=== PATIENT | male | born 1950 | race Caucasian/White ===

== ENCOUNTER → 2018-05-03 14:11 | Outpatient (CLI) | payer OTHER, MEDICARE, SELFPAY ==
--- NOTE | 2018-05-03 | DI.RAD.S_ITS ---
PROCEDURE: XR LUMBAR SPINE 2-3V INDICATIONS: LOW BACK PAIN TECHNIQUE: 3 views of the lumbar spine were acquired. COMPARISON: [facility], , L-SPINE WITHOUT CONTRAST, 07/26/2012, 17:37. FINDINGS: Bones: 5 [id number] vertebrae are present. Mild levoconvex scoliotic curvature is noted. No focal AP alignment abnormality is seen. No vertebral body compression fractures. No suspicious bony lesions. Mild disc space narrowing is seen at the L2-L3, L4, and L5-S1 level. The disc heights are otherwise relatively well-preserved. Lower lumbar spine facet arthropathy is seen. Soft tissues: Overlying bowel gas pattern is normal. No suspicious soft tissue calcifications. IMPRESSION: Age-appropriate lumbar spine degenerative changes are seen. Dictated by: Salazar Whitlock M.D. on 05/03/2018 at 15:31 Approved by: Salazar Whitlock M.D. on 05/03/2018 at 15:33
== END ==
PROVIDERS: Family Provider Family Medicine; PCP Family Medicine; Visit Provider Family Medicine
DX: M54.5 Low back pain (principal)
CPT/HCPCS: 72100

== ENCOUNTER → 2018-09-10 14:50 | Outpatient (CLI) | payer OTHER, SELFPAY ==
--- NOTE | 2018-09-10 | DI.RAD.S_ITS ---
PROCEDURE: XR HIP W PEL IF DONE RT 2V INDICATIONS: Right Hip Pain TECHNIQUE: Tube views of the hip were acquired. COMPARISON: None. FINDINGS: Bones: No fractures or dislocations. No suspicious bony lesions. The visualized pelvic ring appears intact. No evidence of avascular necrosis. Soft tissues: No suspicious soft tissue calcifications or masses. IMPRESSION: No acute right hip fracture or dislocation. No evidence of avascular necrosis. Dictated by: Leonidas Gutierres M.D. on 09/10/2018 at 15:23 Approved by: Leonidas Gutierres M.D. on 09/10/2018 at 15:24
== END ==
PROVIDERS: PCP Family Medicine; Visit Provider Family Medicine
DX: M25.551 Pain in right hip (principal)
CPT/HCPCS: 73502

== ENCOUNTER → 2018-11-22 15:40 | Outpatient (CLI) | payer OTHER, SELFPAY ==
--- NOTE | 2018-11-22 | DI.RAD.S_ITS ---
PROCEDURE: XR HAND RT MIN 3V INDICATIONS: RIGHT HAND SWELLING TECHNIQUE: 3 views of the hand(s) acquired. COMPARISON: None. FINDINGS: Bones: No fractures or dislocations. Carpal bones are normally aligned. No suspicious bony lesions. Soft tissues: No suspicious soft tissue calcifications. Soft tissue edema is noted overlying the metacarpals and carpal bones. There are scattered mild IP degenerative narrowing. IMPRESSION: Mild degenerative arthritic changes. Dictated by: Jillian Mahan M.D. on 11/22/2018 at 16:58 Approved by: Jillian Mahan M.D. on 11/22/2018 at 16:59
== END ==
PROVIDERS: PCP Family Medicine; Visit Provider Family Medicine
DX: M79.641 Pain in right hand (principal); M19.041 Primary osteoarthritis, right hand; M25.441 Effusion, right hand
CPT/HCPCS: 73130

== ENCOUNTER → 2019-09-09 18:32 | Outpatient (CLI) | payer OTHER, SELFPAY ==
--- NOTE | 2019-09-09 | DI.MRI.S_ITS ---
PROCEDURE: MR LUMBAR SPINE WO CON INDICATIONS: radiculopathy, lumbar region TECHNIQUE: Noncontrast sagittal T1 spin echo and T2 fast echo, sagittal STIR, axial T1 and T2 fast spin echo through the lumbar spine. In cases with scoliosis, additional coronal T2 fast spin echo may be performed. COMPARISON: [facility], CR, XR LUMBAR SPINE 2-3V, 05/03/2018, 13:56. [facility], CT, ABDOMEN WITHOUT CONTRAST, 03/08/2011, 13:28. [facility], MR, L-SPINE WITHOUT CONTRAST, 07/26/2012, 17:37. FINDINGS: Image quality: Excellent. Alignment and Curvature: Mild levoconvex scoliotic curvature is noted. Bone Marrow: Marrow is of normal overall signal. No acute vertebral body compression fractures. Spinal Cord: Conus medullaris terminates at the L1 level. Visualized cord demonstrates normal signal and size. Paraspinous Soft Tissues: No paravertebral masses. T12-L1: Normal appearance. L1-L2: The disc height and disk signal are well-preserved. Mild generalized disc bulge is seen. There is minimal left-sided and no right-sided neural foraminal narrowing seen. No significant central canal narrowing is seen. Minimally progressed compared to 2012. L2-L3: Moderate loss of disc height is seen. Loss of disc signal is seen. Moderate generalized disc bulge is seen. There is moderate right-sided and mild to moderate left-sided facet hypertrophy seen. There is moderate to severe right-sided and at least moderate left-sided neural foraminal narrowing seen. There is a degree of compression seen upon the exiting nerve roots. Moderate central canal narrowing is seen. These imaging findings have progressed compared to the prior study. L3-L4: Mild loss of disc height is seen. Loss of disc signal is seen. Moderate to prominent disc bulge is seen. At least moderate bilateral neural foraminal narrowing is seen. Moderate central canal narrowing is seen. These imaging findings have progressed compared to the prior study. L4-L5: Mild loss of disc height is seen. Loss of disc signal is seen. Moderate disc bulge is seen, which is eccentric to the right. Moderate facet joint hypertrophy is seen. Moderate bilateral neural foraminal narrowing is seen, left worse than right. These degenerative changes are worse than in 2012. L5-S1: Mild loss of disc height is seen. Loss of disc signal is seen. Mild to moderate disc bulge is seen. Mild facet joint hypertrophy is seen. There is minimal right-sided and moderate left-sided neural foraminal narrowing seen. No significant central canal narrowing is seen. When comparison is made with the prior examination, these findings are similar. IMPRESSION: Multiple levels of lumbar spine degenerative change are seen, which have progressed compared to 2012. Dictated by: Salazar Whitlock M.D. on 09/10/2019 at 9:04 Approved by: Salazar Whitlock M.D. on 09/10/2019 at 9:10
== END ==
PROVIDERS: PCP Family Medicine; Visit Provider Family Medicine
DX: M47.26 Other spondylosis with radiculopathy, lumbar region (principal); M47.27 Other spondylosis with radiculopathy, lumbosacral region
CPT/HCPCS: 72148

== ENCOUNTER → 2019-12-01 15:40 | Outpatient (CLI) | payer OTHER, SELFPAY ==
--- NOTE | 2019-12-01 | DI.MRI.S_ITS ---
PROCEDURE: MR LUMBAR SPINE WO CON INDICATIONS: BACK PAIN TECHNIQUE: Noncontrast sagittal T1 spin echo and T2 fast echo, sagittal STIR, axial T1 and T2 fast spin echo through the lumbar spine. In cases with scoliosis, additional coronal T2 fast spin echo may be performed. COMPARISON: [facility], MR, MR LUMBAR SPINE WO CON, 09/09/2019, 18:44. FINDINGS: Image quality: Excellent. Alignment and Curvature: Straightening of the normal lordotic curvature. Bone Marrow: No fracture . Multilevel degenerative endplate sclerosis and spurring. Diffuse facet arthropathy. Spinal Cord: Conus medullaris terminates at the L1-L2 level. Visualized cord demonstrates normal signal and size. Paraspinous Soft Tissues: No paravertebral masses. L1-L2: Normal appearance. L2-L3: Mild central canal narrowing. Partial effacement of both lateral recesses with bilaterally symmetric appearance. Mild bilateral foraminal stenoses. L3-L4: Mild central canal narrowing. Lateral recesses appear patent. Minimal left foraminal narrowing. No definite right foraminal stenosis L4-L5: Mild central canal narrowing. Partial effacement of both lateral recesses with bilaterally symmetric appearance. Mild right foraminal narrowing. No left foraminal stenosis L5-S1: No definite central canal narrowing. Moderate left foraminal stenosis. No definite right foraminal narrowing IMPRESSION: Diffuse lumbar spondylosis and facet arthropathy. No high-grade central canal narrowing Bilateral numerous foraminal stenoses as detailed above by spinal level Straightening of the normal lordotic curvature. Dictated by: Hair Flores M.D. on 12/01/2019 at 17:12 Approved by: Hair Flores M.D. on 12/01/2019 at 17:18
--- NOTE | 2019-12-01 15:44 | DI.MRI.S_ITS ---
PROCEDURE: MR THORACIC SPINE WO CON INDICATIONS: NECK AND BACK PAIN TECHNIQUE: Noncontrast sagittal T1 spine echo and T2 fast spin echo, sagittal STIR, axial T1 and T2 fast spin echo through the thoracic spine. COMPARISON: None. FINDINGS: Image quality: Excellent. Alignment and Curvature: There is normal bony alignment. Bone Marrow: Multilevel degenerative endplate sclerosis and spurring. Diffuse facet arthropathy. No acute vertebral body compression fractures. Spinal Cord: Visualized spinal cord is normal in size and signal. Paraspinous Soft Tissues: No paravertebral masses. Bilateral parapelvic cysts incidentally noted Miscellaneous: On axial images, central canal and foramina appear widely patent at all scanned levels. IMPRESSION: No fracture identified. Mild diffuse discogenic changes No canal or foraminal stenoses Dictated by: Hair Flores M.D. on 12/01/2019 at 17:09 Approved by: Hair Flores M.D. on 12/01/2019 at 17:11
--- NOTE | 2019-12-01 15:44 | DI.MRI.S_ITS ---
PROCEDURE: MR CERVICAL SPINE WO CON INDICATIONS: NECK AND BACK PAIN TECHNIQUE: Noncontrast sagittal T1 spin echo and T2 fast spin echo, sagittal STIR, foraminal oblique sagittal T2 fast spin echo, and axial gradient echo or T2 fast spin echo through the cervical spine. COMPARISON: None. FINDINGS: Image quality: Excellent. Alignment and Curvature: Straightening of the normal lordotic curvature. Trace anterolisthesis of C4 on C5 Bone Marrow: No fracture. Multilevel degenerative endplate sclerosis and spurring. Diffuse facet arthropathy. Spinal Cord: Visualized spinal cord has normal size and signal. No cerebellar tonsillar herniation. Paraspinous Soft Tissues: No paravertebral masses. Prevertebral soft tissues are normal in thickness. C2-C3: No central canal narrowing. Mild bilateral foraminal stenosis C3-C4: Mild central canal narrowing. Severe bilateral foraminal stenosis with nerve root compression C4-C5: Mild central canal narrowing. Moderate left foraminal stenosis with nerve root compression. Mild right foraminal narrowing C5-C6: Mild central canal narrowing. Severe right foraminal stenosis with nerve root compression. Moderate left foraminal stenosis with nerve root compression. C6-C7: Mild central canal narrowing. Moderate foraminal stenosis with nerve root compression. Severe left foraminal stenosis with nerve root compression C7-T1: Normal appearance. IMPRESSION: Diffuse cervical spondylosis and facet arthropathy Numerous severe bilateral foraminal stenosis as detailed above by spinal level Trace anterolisthesis of C4 on C5 Straightening of the normal lordotic curvature. Dictated by: Hair Flores M.D. on 12/01/2019 at 16:57 Approved by: Hair Flores M.D. on 12/01/2019 at 17:01
== END ==
PROVIDERS: PCP Family Medicine; Visit Provider Neurological Surgery
DX: M54.2 Cervicalgia (principal); M54.9 Dorsalgia, unspecified; M47.816 Spondylosis without myelopathy or radiculopathy, lumbar region; M47.814 Spondylosis without myelopathy or radiculopathy, thoracic region; M47.812 Spondylosis without myelopathy or radiculopathy, cervical region; M48.061 Spinal stenosis, lumbar region without neurogenic claudication; M48.07 Spinal stenosis, lumbosacral region; M48.02 Spinal stenosis, cervical region
CPT/HCPCS: 72141; 72146; 72148

== ENCOUNTER → 2020-04-13 09:25 | Outpatient (CLI) | payer OTHER, SELFPAY ==
--- NOTE | 2020-04-13 | DI.RAD.S_ITS ---
PROCEDURE: XR KNEE RT 3V INDICATIONS: RIGHT KNEE PAIN TECHNIQUE: 3 views of the knee were acquired. COMPARISON: None. FINDINGS: Bones: No fractures or dislocations. No suspicious bony lesions. Age-appropriate bony degenerative changes are seen. Soft tissues: There is a mild joint effusion. No suspicious soft tissue calcifications. IMPRESSION: Mild joint effusion. Mild degenerative changes. If there is strong clinical suspicion for internal derangement of the knee, please consider a dedicated MRI for further evaluation (assuming that there is no contraindication to MRI). Dictated by: Salazar Whitlock M.D. on 04/13/2020 at 9:02 Approved by: Salazar Whitlock M.D. on 04/13/2020 at 9:04
== END ==
PROVIDERS: PCP Family Medicine; Referring Provider Family Medicine; Visit Provider Family Medicine
DX: M25.561 Pain in right knee (principal); M25.461 Effusion, right knee
CPT/HCPCS: 73562

== ENCOUNTER → 2022-03-01 09:48 | Outpatient (CLI) | payer MEDICARE, OTHER, SELFPAY ==
--- NOTE | 2022-03-01 | DI.RAD.S_ITS ---
PROCEDURE: XR ELBOW LT MIN 3V INDICATIONS: Other chest pain TECHNIQUE: 3 views of the elbow were acquired. COMPARISON: None. FINDINGS: Bones: No fractures or dislocations. No suspicious bony lesions. Mild osteoarthritic degenerative changes noted in the left elbow. Soft tissues: No elbow joint effusion. No suspicious soft tissue calcifications. IMPRESSION: No fracture. No acute osseous lesion. If symptoms and/or clinical suspicion for pathology persists, further assessment with repeat radiographs (7-10 days) or advanced imaging (e.g. CT, MRI or bone scan) should be considered. Dictated by: Cristina Escalante MD, PhD on 03/01/2022 at 13:23 Approved by: Cristina Escalante MD, PhD on 03/01/2022 at 13:24
--- NOTE | 2022-03-01 | DI.RAD.S_ITS ---
PROCEDURE: XR CHEST 2V INDICATIONS: Other chest pain TECHNIQUE: 2 views of the chest were acquired. COMPARISON: , , CHEST 1 VIEW, 02/18/2018, 9:18. FINDINGS: Surgical changes and devices: None. Lungs and pleura: Lungs are clear. No pleural effusions or pneumothorax. Mediastinum: Mediastinal contours are normal. Heart size is normal. Bones and chest wall: No suspicious bony abnormalities. Soft tissues appear unremarkable. IMPRESSION: No acute cardiopulmonary pathology. Dictated by: Leonidas Gutierres M.D. on 03/01/2022 at 11:56 Approved by: Leonidas Gutierres M.D. on 03/01/2022 at 11:56
--- NOTE | 2022-03-01 | DI.RAD.S_ITS ---
PROCEDURE: XR SHOULDER LT MIN 2V INDICATIONS: Other chest pain TECHNIQUE: Three views of the shoulder were acquired. COMPARISON: [facility], , SHOULDER MINIMUM 2 VIEW LEFT, 07/12/2015, 15:58. FINDINGS: Bones: No fractures or dislocations. No suspicious bony lesions. Visualized ribs appear intact. Soft tissues: There are new calcifications adjacent to the greater tuberosity and along the undersurface of the acromion. IMPRESSION: 1. Development of dystrophic calcifications suspicious for calcific tendinitis and/or calcific bursitis. Dictated by: Rebeka Varma M.D. on 03/01/2022 at 14:27 Approved by: Rebeka Varma M.D. on 03/01/2022 at 14:28
== END ==
PROVIDERS: PCP Family Medicine; Referring Provider Family Medicine; Visit Provider Family Medicine
DX: M25.522 Pain in left elbow; R07.89 Other chest pain; M25.512 Pain in left shoulder; M25.812 Other specified joint disorders, left shoulder
CPT/HCPCS: 71046; 73030; 73070; 73080

== ENCOUNTER → 2022-03-08 10:30 | Outpatient (CLI) | payer MEDICARE, OTHER, SELFPAY ==
[2022-03-08 14:16] LABS: COVID19 -Nasal RAPID Negative (Negative)
== END ==
PROVIDERS: PCP Family Medicine; Visit Provider Family Medicine Sleep Medicine
DX: Z20.822 Contact with and (suspected) exposure to COVID-19 (principal)
CPT/HCPCS: 87635; C9803

== ENCOUNTER → 2022-03-10 11:41 | Day surgery (SDC) | payer MEDICARE, OTHER, SELFPAY ==
[2022-03-10] VITALS (18 sets, daily range): BP systolic 104–125; BP diastolic 55–83; PULSE 40–80; RESP 12–19; TEMP 36.2; O2SAT 92–100
--- NOTE | 2022-03-10 | DI.RAD.S_ITS ---
PROCEDURE: XR CHEST 1V INDICATIONS: possible aspiration TECHNIQUE: One view of the chest was acquired. COMPARISON: [facility], CR, XR CHEST 2V, 03/01/2022, 9:49. FINDINGS: Surgical changes and devices: None. Lungs and pleura: Lungs are clear. No pleural effusions or pneumothorax. Mediastinum: Mediastinal contours appear normal. Heart size is normal. Bones and chest wall: No suspicious bony lesions. Overlying soft tissues appear unremarkable. IMPRESSION: No acute pulmonary process. Dictated by: Jillian Mahan M.D. on 03/10/2022 at 18:18 Approved by: Jillian Mahan M.D. on 03/10/2022 at 18:20
--- NOTE | 2022-03-10 13:32 | P.EN_ITS ---
Event Note Date Patient Seen: 03/10/22 Time Patient Seen: 13:33 Event Note (Rapid Response, Code, or fall): Was called to pre-op bedside after rapid response called secondary to bradycardia into the 30s. Patient went into a junctional rhythm and fainted. EKG showed normal sinus rhythm with an interventricular conduction delay. As he was fainting, he also vomited and did have a small amount of aspiration. Chest x-ray taken and pending. Patient spontaneously revived after fluid resu scitation. Reports that he is now feeling fine with no nausea or headache. Denies pain. Reports that he does have a history of vasovagal syncope that has had a full cardiac workup in the past, reportedly non revealing. Shared decision was made to postpone procedure until patient has had cardiac clearance. Saira called and updated. Both patient and demonstrated understanding and agreement. Plan will be to follow-up with PCP, Dr. Singh in 1 week. Patient given routine discharge instructions and advised to rehydrate and eat. He will call back with any worsening symptoms including chest pain, shortness a breath, syncope, or any other concerns.
--- NOTE | 2022-03-10 15:03 | SUR.PREOP ---
as iv was being inserted. pt. c/o lightheadedness and nausea. pt. diaphoretic, hob immediately flat and Pt. placed on monitor. pt. became unresponsive vomited bilious emesis. Pt turned to side. code blue called. Pt returned to consciousness at this time without intervention. Iv restarted and fluids open wide. at bedside. Dr Douglas updated by Rajan on by telephone. 12 lead EGK, labs and Chest xray completed.
== END | disposition home or self-care (01) ==
PROVIDERS: PCP Family Medicine; Referring Provider Student in an Organized Health Care Education/Training Program; Visit Provider Student in an Organized Health Care Education/Training Program
PROC: 0DJD8ZZ Inspection of Lower Intestinal Tract, Via Natural or Artificial Opening Endoscopic (ICD-10-PCS; CPT 45378; principal; 2022-03-10 13:00)
DX: Z12.11 Encounter for screening for malignant neoplasm of colon (principal); R00.1 Bradycardia, unspecified; R55 Syncope and collapse; R11.10 Vomiting, unspecified; Z53.09 Procedure and treatment not carried out because of other contraindication
CPT/HCPCS: G0121; 71045; 93005

== ENCOUNTER → 2022-04-28 10:25 | Outpatient (CLI) | payer MEDICARE, OTHER, SELFPAY ==
--- NOTE | 2022-04-28 | DI.ECHO.S_ITS ---
[facility] +---------+ : : [address] : [address] [place] : : : : [id number] : : : : Phone: [phone]+ Echocardiogram Report + + :Name: HALEY SHAW Study Date: 04/28/2022 Height: 72 in : :[facility] ReadingLocation: Weight: 225 lb : : Gender: Male BSA: 2.2 m2 : :: 1950 Age: 71 yrs BP: 140/86 mmHg: :Reason For Study: Bradycardia : :Ordering Physician: KRYSTEN, : :MORIAH Performed By: Kevin Ascencio : :Referring: MORIAH CORONADO : + + Interpretation Summary 1) Normal left ventricular thickness and size with low normal systolic function (EF 50-55%). 2) Normal right ventricular size and function. 3) No significant valvular abnormalities. 4) No prior Echo available for comparison. Procedure: A two-dimensional transthoracic echocardiogram with color flow and Doppler was performed. The study quality was technically adequate. There is no prior echocardiogram noted for this patient. The patient was in sinus bradycardia with heart rates between 47-57 bpm during the exam. Left Ventricle: The left ventricle is normal in size and wall thickness. Left ventricular systolic function is low normal. The ejection fraction is estimated to be 50-55%. There are no focal wall motion abnormalities. Diastolic parameters suggest probable normal left ventricular diastolic function and normal filling pressures. Right Ventricle: The right ventricle is normal in size and function. Atria: Both atria are normal in size. The interatrial septum grossly appears intact with no obvious evidence for an atrial septal defect. Mitral Valve: The mitral valve is normal in structure and function. There is trace mitral regurgitation. Aortic Valve: The aortic valve is normal in structure and function. There is no aortic valve stenosis. There is trace aortic regurgitation. Tricuspid Valve: The tricuspid valve is normal in structure and function. There is mild tricuspid regurgitation. The right ventricular systolic pressure is estimated to be at least 23 mmHg based on an estimated right atrial pressure of 3 mm Hg. Pulmonic Valve: The pulmonic valve is normal in structure and function. There is a trace or physiologic amount of pulmonic regurgitation. Great Vessels: The aortic root is normal size. The dimensions of the ascending aorta are normal. The IVC is of normal diameter and collapses greater than 50% with a sniff. This suggests a low right atrial pressure of 3 mm Hg. Pericardium/ Pleura There is no pericardial effusion. There is no pleural effusion. MMode/2D Measurements & Calculations LVIDd: 5.6 cm LVOT diam: 2.4 cm LVIDs: 4.1 cm Ao root diam: 3.5 cm FS: 27.6 % asc Aorta Diam: 3.5 cm IVSd: 0.88 cm LVPWd: 0.92 cm LV kaye. diameter/BSA (cm/m^2): 2.5 LV sys. diameter/BSA (cm/m^2): 1.8 LA A2 area: 20.2 cm2 RA long axis: 5.2 cm LA A4 area: 20.2 cm2 RA area: 17.1 cm2 LA length (vol): 6.1 cm RA vol: 47.8 ml LA vol: 56.9 ml RA : 21.3 ml/m2 LA vol index: 25.4 ml/m2 TAPSE: 2.8 cm Doppler Measurements & Calculations Ao V2 max: 108.7 cm/sec LVOT Max Landen: 90.2 cm/sec Ao V2 mean: 72.7 cm/sec LV V1 max P.3 mmHg Ao max P.7 mmHg LV V1 VTI: 19.7 cm Ao mean P.4 mmHg DARLIN(I,D): 4.4 cm2 Ao V2 VTI: 21.2 cm DARLIN(V,D): 3.9 cm2 sev ratio: 0.93 DARLIN indexed to BSA (cm^2/m^2): 1.9 MV E max landen: 64.9 cm/sec TR max landen: 222.7 cm/sec MV A max landen: 60.1 cm/sec TR max P.8 mmHg MV E/A: 1.1 Med Peak E' Landen: 7.2 cm/sec E/E' med: 9.0 Lat Peak E' Landen: 9.9 cm/sec E/E' lat: 6.5 E/e' average: 7.8 MV dec time: 0.22 sec SV(LVOT): 92.4 ml Reading Physician:12:31 PM
== END ==
PROVIDERS: PCP Family Medicine; Referring Provider Internal Medicine Cardiovascular Disease; Visit Provider Internal Medicine Cardiovascular Disease
DX: I07.1 Rheumatic tricuspid insufficiency (principal); R00.1 Bradycardia, unspecified
CPT/HCPCS: 93306

== ENCOUNTER → 2022-07-11 13:54 | Outpatient (CLI) | payer MEDICARE, OTHER, SELFPAY ==
[2022-07-11 14:31] LABS: COVID19 -Nasal RAPID Negative (Negative)
--- NOTE | 2022-07-11 19:06 | DI.NM.S_ITS ---
DATE OF SERVICE: PROCEDURE PERFORMED: Exercise stress test. INDICATION: Syncope. CARDIAC STRESS: The patient underwent exercise stress test under the supervision of an attending staff. He walked on Henri protocol for 7 minutes and 40 seconds, achieved 91 percent of target heart rate. Resting blood pressure 118/78 mmHg. Peak blood pressure 162/84 mmHg. QUANG -7 percent. Baseline rhythm was sinus. During peak exercise, patient has 1-1.5 mm horizontal/downsloping ST-depression in inferior leads and in lead V5 to V6, which got improved to baseline within 1 minute in recovery. Occasional PVCs in recovery. No chest discomfort. Had some shortness of breath. CONCLUSION: Exercise stress is positive for inducible ischemia. Fair exercise tolerance. Normal hemodynamic response. No significant arrhythmias. No chest pain. Had some shortness of breath. Correlate clinically. Ashlyn Avelar - PARTS CLASSIFIER/kristian/lc doc#: [id number]/job#: [id number] dd: 07/11/2022 17:10:00 dt: 07/11/2022 18:45:00 DICTATING /COPIES TO: Dar Roper MD COPIES MNE: CORINNE;
== END ==
PROVIDERS: PCP Family Medicine; Referring Provider Internal Medicine Cardiovascular Disease; Visit Provider Internal Medicine Cardiovascular Disease
DX: R07.9 Chest pain, unspecified (principal); R55 Syncope and collapse
CPT/HCPCS: 87635; 93017

== ENCOUNTER → 2022-10-18 16:17 | Outpatient (CLI) | payer MEDICARE, OTHER, SELFPAY ==
--- NOTE | 2022-10-18 | DI.MRI.S_ITS ---
PROCEDURE: MR LUMBAR SPINE WO CON INDICATIONS: PARESTHESIA OF SKIN TECHNIQUE: Noncontrast sagittal T1 spin echo and T2 fast echo, sagittal STIR, and T2 fast spin echo through the lumbar spine. In cases with scoliosis, additional coronal T2 fast spin echo may be performed. COMPARISON: None. FINDINGS: Image quality: Excellent. Alignment and Curvature: There is minimal S shaped scoliotic curvature. There is minimal retrolisthesis seen at L3-L4, L4-L5, and at L5-S1. Bone Marrow: Marrow is of normal overall signal. No acute vertebral body compression fractures. Spinal Cord: Conus medullaris terminates at the L1 level. Visualized cord demonstrates normal signal and size. Paraspinous Soft Tissues: No paravertebral masses. T12-L1: Normal appearance. L1-L2: The disc height and disk signal are relatively well-preserved. Mild to moderate disc bulge is seen. Mild facet joint hypertrophy is seen. There is hejp-ke-tcbxfwzb left-sided and mild right-sided neural foraminal narrowing. Mild central canal narrowing is seen. L2-L3: Mild loss of disc height is seen. Loss of disc signal is seen. At least moderate disc bulge is seen. There is a superimposed central disc protrusion. There is a focal annular fissure seen posteriorly. There is moderate right-sided and uyrf-vw-lqufribc left-sided facet hypertrophy. There is at least moderate bilateral neural foraminal narrowing seen, right worse than left. Moderate central canal narrowing is seen. L3-L4: Moderate loss of disc height is seen. Loss of disc signal is seen. Moderate disc bulge is seen, which is eccentric to the right. Mild facet joint hypertrophy is seen. There is at least moderate bilateral neural foraminal narrowing seen, left worse than right. Moderate central canal narrowing is seen. L4-L5: Moderate loss of disc height is seen. Loss of disc signal is seen. Moderate generalized disc bulge is seen. There is a superimposed central disc protrusion. There is a focal annular fissure seen posteriorly. Moderate facet joint hypertrophy is seen. There is at least moderate bilateral neural foraminal narrowing seen, right worse than left. Moderate central canal narrowing is seen. L5-S1: Cssf-ap-ovnowbcz loss of disc height and disc signal can be seen. Moderate generalized disc bulge is seen. There is a faintly seen focal annular fissure seen posteriorly. Mild facet joint hypertrophy is seen. There is moderate right-sided and at least moderate left-sided neural foraminal narrowing. IMPRESSION: Multiple levels of lumbar spine degenerative change are seen, which are overall worst inferiorly. Dictated by: Salazar Whitlock M.D. on 10/18/2022 at 17:00 Approved by: Salazar Whitlock M.D. on 10/18/2022 at 17:03
== END ==
PROVIDERS: PCP Family Medicine; Referring Provider Family Medicine; Visit Provider Family Medicine
DX: M47.816 Spondylosis without myelopathy or radiculopathy, lumbar region (principal); M47.817 Spondylosis without myelopathy or radiculopathy, lumbosacral region; R20.0 Anesthesia of skin; R15.9 Full incontinence of feces
CPT/HCPCS: 72148

== ENCOUNTER → 2023-01-24 08:38 | Outpatient (CLI) | payer MEDICARE, OTHER, SELFPAY ==
--- NOTE | 2023-01-24 | DI.US.S_ITS ---
PROCEDURE: US ABD AORTA ANEURYSM SCREEN INDICATIONS: Encounter for screening for cardiovascular disorders TECHNIQUE: Real-time scanning was performed of the aorta and proximal common iliac arteries, with image documentation. COMPARISON: None. FINDINGS: Aorta: Abdominal aorta is normal in caliber throughout its length. Iliacs: Proximal common iliac arteries are normal in caliber. IMPRESSION: No infrarenal aortic aneurysm. Dictated by: Mehdi Olivarez M.D. on 01/24/2023 at 10:01 Approved by: Mehdi Olivarez M.D. on 01/24/2023 at 10:01
== END ==
PROVIDERS: PCP Family Medicine; Referring Provider Family Medicine; Visit Provider Family Medicine
DX: Z13.6 Encounter for screening for cardiovascular disorders (principal)
CPT/HCPCS: 76706

== ENCOUNTER → 2023-03-19 06:52 | Outpatient (CLI) | payer MEDICARE, OTHER, SELFPAY ==
--- NOTE | 2023-03-19 | DI.US.S_ITS ---
PROCEDURE: US ABDOMEN COMPLETE INDICATIONS: RIGHT UPPER QUADRANT PAIN TECHNIQUE: Real-time scanning was performed of the abdominal and retroperitoneal organs, with image documentation. COMPARISON: [facility], CT, ABDOMEN WITHOUT CONTRAST, 03/08/2011, 13:28. [facility], US, ABDOMEN COMPLETE, 03/14/2011, 9:31. [facility], US, US ABD AORTA ANEURYSM SCREEN, 01/24/2023, 8:50. FINDINGS: Liver: The liver demonstrates enlarged size. The liver demonstrates generalized moderately increased echogenicity. This decreases ultrasound sensitivity for detection of hepatic masses. Likely fatty sparing can be seen adjacent to the gallbladder. Gallbladder: An 8 mm mobile gallstone can be seen. The gallbladder wall is not thickened, measuring 3 mm or less. No specific pericholecystic fluid is seen. The sonographic Gross sign is negative. Biliary ducts: Intrahepatic bile ducts are non-dilated. Extrahepatic bile duct caliber measures 4-5 mm. Normal is 6-7 mm or less in diameter, or 10 mm or less post-cholecystectomy. Pancreas: Visualized portions of the pancreas are sonographically normal. Spleen: Spleen is normal in size and homogeneous in echotexture. Kidneys: Kidneys are normal in size and echotexture. Right kidney measures 10.8 cm long; left kidney measures 11.3 cm long. No nephrolithiasis. Within the right mid kidney, there is a potential 1.4 cm mass seen. Mild right hydronephrosis is seen. Within the left kidney, there are multiple simple appearing peripelvic cysts, with the largest measuring up to 2.1 cm. Aorta: Visualized aorta is normal in caliber at less than 3 cm. Iliacs: Not well seen. IVC: Intrahepatic inferior vena cava is patent. Miscellaneous: No free abdominal fluid. IMPRESSION: A single mobile gallstone is seen, yet without additional sonographic signs of cholecystitis. Negative for biliary dilatation. Please correlate with physical examination findings, patient presentation, and laboratory values. Mild right kidney hydronephrosis is seen. There is a potential right kidney mass seen that measures up to 1.4 cm. Please consider a follow-up renal mass protocol CT for further evaluation. Enlarged, fatty liver. Left kidney peripelvic cysts incidentally noted. Dictated by: Salazar Whitlock M.D. on 03/19/2023 at 16:02 Approved by: Salazar Whitlock M.D. on 03/19/2023 at 16:05
== END ==
PROVIDERS: PCP Family Medicine; Referring Provider Family Medicine; Visit Provider Family Medicine
DX: N13.30 Unspecified hydronephrosis (principal); N28.1 Cyst of kidney, acquired; K80.20 Calculus of gallbladder without cholecystitis without obstruction; K76.0 Fatty (change of) liver, not elsewhere classified; R10.11 Right upper quadrant pain
CPT/HCPCS: 76700

== ENCOUNTER → 2023-03-23 07:02 | Outpatient (CLI) | payer MEDICARE, OTHER, SELFPAY ==
--- NOTE | 2023-03-23 07:04 | DI.MRI.S_ITS ---
PROCEDURE: MR ABDOMEN WO/W CON INDICATIONS: Other specified disorders of kidney and ureter TECHNIQUE: Coronal HASTE through abdomen and pelvis; axial 2D FLASH in- and [id number] (with and without fat saturation), and breath-hold T2 FSE from the hepatic dome to the bottom of the kidneys. Coronal HASTE MR urogram of kidneys and bladder. Dynamic coronal VIBE during IV gadolinium administration; postgadolinium axial VIBE or 2D FLASH with fat saturation from the hepatic dome through the kidneys. COMPARISON: [facility], US, US ABDOMEN COMPLETE, 03/19/2023, 7:07. [facility], MR, MR LUMBAR SPINE WO CON, 10/18/2022, 16:46. FINDINGS: Image quality: Good Lower chest: No pleural effusions. Lungs are not well evaluated on this study. Heart size is normal. Solid organs: Hepatic steatosis, at least moderate with estimated fat fraction of over 15% Gallbladder is unremarkable. No pathologic dilation of the biliary tree or pancreatic duct. No pathologic pancreatic ductal dilation. No splenomegaly. No adrenal nodules. No hydronephrosis. There are parapelvic cysts. No enhancing renal mass is identified. Vessels and lymph nodes: No pathologic adenopathy. Main portal vein is patent. No renal vein thrombus. Bowel and peritoneum: No bowel obstruction or pathologic ascites. Body wall: Unremarkable Bones: No acute or suspicious osseous finding. IMPRESSION: No MRI correlate to the potential renal mass seen on ultrasound. No suspicious enhancement. Recommend repeat sonographic imaging to document resolution/re-evaluate on the same modality. If there is concern for renal stone disease, a CT KUB could also be obtained. Numerous peripelvic cysts are present. Incidentally noted, at least moderate hepatic steatosis. Dictated by: Romel Weber M.D. on 03/23/2023 at 10:48 Approved by: Romel Weber M.D. on 03/23/2023 at 10:56
== END ==
PROVIDERS: PCP Family Medicine; Referring Provider Family Medicine; Visit Provider Family Medicine
DX: N28.89 Other specified disorders of kidney and ureter (principal); K76.0 Fatty (change of) liver, not elsewhere classified
CPT/HCPCS: 74183; A9579

== ENCOUNTER → 2023-07-11 14:07 | Outpatient (CLI) | payer MEDICARE, OTHER, SELFPAY ==
--- NOTE | 2023-07-11 | DI.US.S_ITS ---
PROCEDURE: US RENAL COMPLETE INDICATIONS: RENAL MASS TECHNIQUE: Real-time scanning was performed of the kidneys and bladder, with image documentation. COMPARISON: [facility], MR, MR ABDOMEN WO/W CON, 03/23/2023, 7:39. [facility], US, US ABDOMEN COMPLETE, 03/19/2023, 7:07. FINDINGS: Kidneys: Right renal length 10.6 cm cortical thickness 1.5 cm left renal length 11.0 cm cortical thickness 1.8 cm. No convincing hydronephrosis bilaterally renal sinus cysts are present bilaterally. Possible/equivocal mass versus artifact right inferior renal pelvis avascular 1.6 cm previously 1.4 cm Bladder: Pre-void bladder volume is 35 mL. Pre-void images demonstrate no intraluminal masses or stones. On pre-void images, both ureteral jets are noted with color Doppler interrogation. (Of note, ureteral jets may not be detectable in up to 25% of cases due to insufficient differences in specific gravity between ureteral and bladder urine). Miscellaneous: No free pelvic fluid. IMPRESSION: Possible/equivocal mass versus artifact or prominent renal sinus fat right inferior kidney/renal pelvis not substantially changed in maximal dimension since prior ultrasound. No definite correlate on prior renal protocol MRI. Continued imaging surveillance could be obtained as clinically indicated. Dictated by: Александр Holley M.D. on 07/11/2023 at 17:24 Approved by: Александр Holley M.D. on 07/11/2023 at 17:33
== END ==
PROVIDERS: PCP Family Medicine; Referring Provider Family Medicine; Visit Provider Family Medicine
DX: N28.89 Other specified disorders of kidney and ureter (principal)
CPT/HCPCS: 76770

== ENCOUNTER → 2024-07-03 11:46 | Outpatient (CLI) | payer MEDICARE, OTHER, SELFPAY ==
--- NOTE | 2024-07-03 11:49 | DI.RAD.S_ITS ---
PROCEDURE: XR RIBS RT MIN 3V W CXR 1V INDICATIONS: Pleurodynia TECHNIQUE: 4 views of the ribs were acquired, along with a single view chest. COMPARISON: None. FINDINGS: Surgical changes and devices: None. Bones and chest wall: No right-sided rib fractures or dislocation. A metallic marker is present on the skin findings the area of clinical concern. No radiographic abnormality underlying the metallic marker on the patient's skin. Lungs and pleura: No pleural effusions or pneumothorax. Lungs appear clear. Mediastinum: Mediastinal contours appear normal. Heart size is normal. IMPRESSION: No displaced rib fracture or pneumothorax. Dictated by: Ronald Riggins M.D. on 07/03/2024 at 17:34 Approved by: Ronald Riggins M.D. on 07/03/2024 at 17:35
== END ==
LOC: RAD 11:48
PROVIDERS: Family Provider Family Medicine; PCP Family Medicine; Referring Provider Family Medicine; Visit Provider Family Medicine
DX: R07.81 Pleurodynia (principal)
CPT/HCPCS: 71101

== ENCOUNTER 2024-10-30 09:08 | Day surgery (SDC) | payer MEDICARE, OTHER, SELFPAY ==
--- NOTE | 2024-10-30 | PATH_ITS ---
[facility] Accession Number: [id number] No. of containers..03 Tissue . 01 Material submitted: . PART A: colon - CECAL POLYPS X3 PART B: colon - ASCENDING POLYPS PART C: colon - SIMGOID POLYP . 01 Diagnosis: A. CECUM, POLYPECTOMY (X3): Tubular adenoma, > 3 fragments. - B. ASCENDING COLON, POLYPECTOMY(S): Sessile serrated adenoma/polyp, 2 fragments. - C. SIGMOID COLON, POLYPECTOMY: Tubular adenoma. [facility] 11/03/2024 1548 Local . 01 Electronically signed: . Wilber Garcia MD, Pathologist NPI- [id number] . 01 Gross description: . Part A: CECAL POLYPS X3: Received in formalin are 2 fragment(s) of martinez, soft tissue measuring 0.4 x 0.3 x 0.3 cm to 0.8 x 0.4 x 0.4 cm submitted entirely in 1 cassette(s) Part B: ASCENDING POLYPS: Received in formalin are 2 fragment(s) of martinez, soft tissue measuring 0.6 x 0.6 x 0.4 cm to 0.9 x 0.3 x 0.3 cm submitted entirely in 1 cassette(s) Part C: SIMGOID POLYP: Received in formalin is 1 fragment(s) of martinez, soft tissue measuring 0.7 x 0.6 x 0.5 cm submitted entirely in 1 cassette(s) /JULIET 10/31/2024 2337 Local . 01 Pathologist provided ICD-10: Z12.11 . 01 CPT . 599046, 471577, 295956 Specimen Comment: A courtesy copy of this report has been sent to [phone] Performed at: [address] [facility] [address], [place], [place] [id number] MD Ken Osei MD Phone: [phone]
[2024-10-30 09:50] VITALS: BP 116/79; PULSE 91; RESP 12; TEMP 36.4; O2SAT 95
--- NOTE | 2024-10-30 10:02 | PM.HP.1 ---
History of Present Illness History of Present Illness Date Patient Seen: 10/30/24 Time Patient Seen: 10:02 Chief complaint: Screening Colonoscopy Narrative: Susana is a 74-year-old man who is here anoscopy. His last one was about 8 years ago. He does not recall if polyps were removed. No family history of colon cancer. [facility] Social History Smoking Status: Former smoker Meds Home Medications and Allergies Home Medications Medication Instructions Recorded Confirmed Type aspirin 81 mg tablet,delayed 81 mg PO QDAY ##0 11/13/12 10/30/24 History release ibuprofen 200 mg tablet 200 mg PO PRN PRN Pain (Scale 02/18/18 10/30/24 History Score 1-3) ##0 cyclobenzaprine 10 mg tablet 10 mg PO TIDP PRN Muscle Spasm 10/30/24 10/30/24 History Allergies Allergy/AdvReac Type Severity Reaction Status Date / Time Iodine and Iodide Containing Allergy Mild IV/ Verified 10/30/24 09:40 Produc HOSPITALIZED [IODINE AND IODIDE CONTAINING PRODUC] Exam Vital Signs (past 8 hours): - 10/30/24 09:50 Temperature 97.6 F Pulse Rate 91 H Respiratory Rate 12 Blood Pressure 116/79 Pulse Oximetry 95 Oxygen Delivery Method Room Air Oxygen Delivery Method Room Air Const General: healthy appearing Assessment & Plan Assessment and plan (1) Colon cancer screening: Status: Acute Plan Colonoscopy Time-Based Coding :: [TOTAL MINUTES] spent with patient and on the chart (including review of chart, obtaining history, exam, reviewing outside data, placing orders, documenting exam and treatment plan, and counseling patient) on [DATE].
[2024-10-30] MEDS: KETOROLAC 30 MG/ML VIAL 15 MG IV (10:03)
--- NOTE | 2024-10-30 11:11 | PM.OP.COLON ---
Operative Date/Time/Diagnoses Date of procedure: 10/30/24 Time of procedure: 11:11 Pre-op diagnosis: Colon cancer screening Post-op diagnosis: same Procedure & Clinicians Study performed: Colonoscopy Same procedure as scheduled: Yes Surgeon: Lev Grey Procedure Notes Procedure in detail: Surgeon: Lev Grey MD Anesthesia: Sandrita Tobias CRNA Procedure: The patient was brought to the endoscopy suite, placed in left lateral decubitus position. The patient was connected to monitoring devices. A time-out was performed. Sedation was administered. Once the patient was adequately sedated, a digital rectal exam was performed and was normal. The scope was then inserted and advanced to the cecum where the appendiceal orifice was identified and photographed. The scope was then slowly withdrawn over greater than 6 minutes. The mucosa was thoroughly inspected. There were 3 small polyps in the cecum removed with cold snare and sent together. There was a 7 mm polyp in the ascending colon removed with a cold snare. There was a 7 mm polyp in the sigmoid colon removed with a cold snare. The scope was retroflexed in the rectum. No other abnormalities were seen. The scope was straightened and removed. The patient was awakened and brought to recovery. Scope withdrawal time: 15 minutes Sedation time: 19 minutes EBL: 5 mL Findings: 3 cecal polyps, 1 ascending colon polyp and 1 sigmoid colon Post-procedure Disposition: PACU
[2024-10-30 11:13] VITALS: BP 111/74; PULSE 100; RESP 18; TEMP 36.3; O2SAT 99
[2024-10-30 11:18] VITALS: BP 102/76; PULSE 97; RESP 18; O2SAT 99
[2024-10-30 11:23] VITALS: BP 111/74; PULSE 97; RESP 16; O2SAT 99
== END 2024-10-30 11:40 | disposition home or self-care (01) ==
PROVIDERS: Family Provider Family Medicine; PCP Family Medicine; Referring Provider Surgery; Visit Provider Surgery
PROC: 0DJD8ZZ Inspection of Lower Intestinal Tract, Via Natural or Artificial Opening Endoscopic (ICD-10-PCS; CPT 45378; principal; 2024-10-30 10:30)
DX: Z12.11 Encounter for screening for malignant neoplasm of colon (principal); D12.0 Benign neoplasm of cecum; D12.2 Benign neoplasm of ascending colon; D12.5 Benign neoplasm of sigmoid colon
CPT/HCPCS: 45385; J1885; J2405; J2704

== ENCOUNTER → 2025-04-29 11:52 | Outpatient (CLI) | payer MEDICARE, OTHER, SELFPAY ==
--- NOTE | 2025-04-29 11:53 | DI.CT.S_ITS ---
PROCEDURE: CT ABDOMEN PELVIS WO CON INDICATIONS: abd pain TECHNIQUE: After the administration of oral contrast, 5 mm thick sections acquired from the diaphragms to the symphysis. 5 mm coronal and sagittal reformats were performed. For radiation dose reduction, the following was used: automated exposure control, adjustment of mA and/or kV according to patient size. COMPARISON: None. FINDINGS: Image quality: Diagnostic. Lower Chest: No significant findings. ABDOMEN: Liver: No contour-deforming mass. Geographic fatty infiltration of the liver. Gallbladder: A calcified gallstone is seen in the dependent portion of the gallbladder. No pericholecystic inflammatory changes. Biliary ducts: No biliary dilation. Pancreas: No ductal dilation. Spleen: Size is within normal limits. Adrenal Glands: No adrenal nodules. Kidneys and Ureters: No hydronephrosis. No contour-deforming mass. Multiple bilateral parapelvic renal cysts. Stomach and Bowel: Multiple diverticula are seen in the colon. There is bowel wall thickening and inflammatory fat stranding surrounding a diverticulum at the sigmoid colon. No focal fluid collection or pneumoperitoneum. No signs bowel obstruction. Peritoneum: No abnormal intraperitoneal fluid. No free air. Ventral Wall: Tiny fat containing periumbilical hernia. Abdominal Nodes: No retroperitoneal or mesenteric adenopathy by size criteria. Vessels: Aorta and inferior vena cava are normal in size. PELVIS: Pelvic Organs: Unremarkable. Bladder: Unremarkable. Pelvic Nodes: No enlarged lymph nodes. Miscellaneous: No inguinal hernias are seen. Bones: No aggressive osseous abnormality. IMPRESSION: Acute uncomplicated sigmoid diverticulitis. Approved by: Александр Paul M.D. on 04/29/2025 at 14:30
== END ==
PROVIDERS: Family Provider Family Medicine; PCP Family Medicine; Referring Provider Family Medicine; Visit Provider Family Medicine
DX: K57.32 Diverticulitis of large intestine without perforation or abscess without bleeding (principal); R10.11 Right upper quadrant pain; K80.20 Calculus of gallbladder without cholecystitis without obstruction; N28.1 Cyst of kidney, acquired
CPT/HCPCS: 74176

== ENCOUNTER → 2025-05-13 16:28 | Outpatient (ROUT) | payer MEDICARE, OTHER, SELFPAY ==
[2025-05-13 17:09] LABS: Influenza A - CEPHEID Flu A NEGATIVE (NEGATIVE); Influenza B - CEPHEID Flu B NEGATIVE (NEGATIVE)
[2025-05-13 17:12] LABS: COVID-19 CEPHEID 4-PLEX PCR Negative (Negative)
== END ==
PROVIDERS: Family Provider Family Medicine; PCP Family Medicine; Visit Provider Family Medicine
DX: R05.9 Cough, unspecified (principal); R09.81 Nasal congestion
CPT/HCPCS: 87637

== ENCOUNTER → 2025-05-18 14:34 | Outpatient (CLI) | payer MEDICARE, OTHER, SELFPAY ==
--- NOTE | 2025-05-18 | DI.RAD.S_ITS ---
PROCEDURE: XR CHEST 2V INDICATIONS: COUGH TECHNIQUE: 2 views of the chest were acquired. COMPARISON: [facility], CR, XR CHEST 1V, 03/10/2022, 12:15. FINDINGS: Surgical changes and devices: None. Lungs and pleura: Lungs are clear. No pleural effusions or pneumothorax. Mediastinum: Mediastinal contours are normal. Heart size is normal. Bones and chest wall: No suspicious bony abnormalities. Soft tissues appear unremarkable. IMPRESSION: No acute cardiopulmonary abnormality is seen. Dictated by: Carlos Diaz M.D. on 05/19/2025 at 6:46 Approved by: Carlos Diaz M.D. on 05/19/2025 at 6:48
== END ==
PROVIDERS: Family Provider Family Medicine; PCP Family Medicine; Referring Provider Family Medicine; Visit Provider Family Medicine
DX: R05.1 Acute cough (principal)
CPT/HCPCS: 71046